=== PATIENT | female | born 1955 ===

== ENCOUNTER 2018-07-09 02:10 | Outpatient (CLI) | payer BC | END 2018-07-09 23:59 | disposition home or self-care (01) | LOC: DIABETIC 02:10 | PROVIDERS: ATTEND General Practice | DX: E11.9 Type 2 diabetes mellitus without complications (principal); Z79.899 Other long term (current) drug therapy; Z88.1 Allergy status to other antibiotic agents; Z88.8 Allergy status to other drugs, medicaments and biological substances | CPT/HCPCS: G0108 ==

== ENCOUNTER 2018-11-20 03:32 | Outpatient (CLI) | payer BC | END 2018-11-20 23:59 | disposition home or self-care (01) | LOC: DIABETIC 03:32 | PROVIDERS: ATTEND General Practice | DX: E11.9 Type 2 diabetes mellitus without complications (principal); Z79.84 Long term (current) use of oral hypoglycemic drugs; Z88.1 Allergy status to other antibiotic agents; Z88.8 Allergy status to other drugs, medicaments and biological substances | CPT/HCPCS: G0108 ==